=== PATIENT | male | born 1960 | race Caucasian/White ===

== ENCOUNTER 2018-07-29 10:21 | Emergency (ER) | payer OTHER ==
[~2018-07-29] VITALS: Ht 190.5 cm; Wt 128.1 kg
[2018-07-29 10:25] VITALS: Ht 190.5 cm; Wt 128.1 kg
[2018-07-29] MEDS ORDERED: ALBUTEROL 0.083% (NEB) 2.5 MG/3 ML AMP HHN STA (11:14)
[2018-07-29] MEDS ORDERED: DEXAMETHASONE 10 MG/ML 1 ML INJ IM ONE (11:30)
[2018-07-29] MEDS ORDERED: IPRATROPIUM (NEB) 0.5 MG/2.5 ML AMP HHN ONE (11:30)
[2018-07-29] MEDS ORDERED: ALBU8.5H8 INH (12:32)
[2018-07-29] MEDS ORDERED: MED4DP PO (12:32)
[2018-07-29] MEDS ORDERED: BENZ-6 PO (12:32)
[2018-07-29] MEDS ORDERED: D-ME473S2 PO (12:32)
--- NOTE | 2018-07-29 12:40 | ERD ---
ER Documentation Chief Complaint Chief Complaint cough x 13 days HPI 58 yr old male presenting with a cough x13 days. Patient has been on a course of Augmentin and Keflex with no alleviation of his symptoms. He denies any chest pain or shortness of breath. He states is a dry type cough. He has mild sore throat and mild congestion. He smokes to 3 cigarettes a day. Medical history is hypertension, heart failure, diabetes, hypercholesterolemia. Social history occasionally denies drug use. ROS All systems reviewed and are negative except as per history of present illness. Medications Home Meds Active Scripts Albuterol Sulfate* (Proair HFA*) 8.5 Gm Hfa.aer.ad, 2 PUFF INH Q4, #1 INHALER Prov:RUPINDER TELLEZ PA-C 07/29/18 Methylprednisolone* (Medrol* DOSE PACK) 4 Mg/Dose-Pack Tab.ds.pk, 4 MG PO . DIRECTED, #1 PACKET Prov:RUPINDER TELLEZ PA-C 07/29/18 Benzonatate* (Tessalon Perle*) 100 Mg Capsule, 100 MG PO Q8H PRN for COUGH, #30 CAP Prov:RUPINDER TELLEZ PA-C 07/29/18 Dextromethorphan Hb-Promethazine Hcl* (Promethazine DM* Syrup) 473 Ml Syrup, 5 ML PO Q6 PRN for COUGH, #100 ML Prov:RUPINDER TELLEZ PA-C 07/29/18 Allergies Allergies: Coded Allergies: No Known Allergy (Unverified , 07/29/18) PMhx/Soc History of Surgery: Yes (left shoulder SX) Anesthesia Reaction: No Hx Cardiac Disorders: Yes (HTN, Afib) Hx Alcohol Use: Yes (beer QD) Hx Substance Use: No Hx Tobacco Use: Yes Smoking Status: Current every day smoker FmHx Family History: No diabetes, No coronary disease, No other Physical Exam Vitals Vital Signs Date Temp Pulse Resp B/P (MAP) Pulse Ox O2 O2 Flow FiO2 Time Delivery Rate 07/29/18 98 19 97 21 11:35 07/29/18 97.7 98 20 178/90 96 10:25 (119) Physical Exam GENERAL: The patient is well-appearing, well-nourished, in no acute distress HEENT: Atraumatic. Conjunctivae are pink. Pupils equal, round, and reactive to light. There is no scleral icterus. Tympanic membranes clear bilaterally. Oropharynx clear. NECK: C-spine is soft and supple. There is no meningismus. There is no cervical lymphadenopathy. CHEST: Clear to auscultation bilaterally. There are no rales, wheezes or rhonchi. HEART: Regular rate and rhythm. No murmurs, clicks, rubs or gallops. Result Diagram: 07/29/18 1140 07/29/18 1140 Results 24 hrs Laboratory Tests Test 07/29/18 11:40 White Blood Count 8.1 10^3/ul Red Blood Count 4.93 10^6/ul Hemoglobin 15.7 g/dl Hematocrit 45.8 % Mean Corpuscular Volume 92.9 fl Mean Corpuscular Hemoglobin 31.8 pg Mean Corpuscular Hemoglobin Concent 34.3 g/dl Red Cell Distribution Width 12.3 % Platelet Count 191 10^3/UL Mean Platelet Volume 10.9 fl Immature Granulocytes % 0.400 % Neutrophils % 62.7 % Lymphocytes % 26.7 % Monocytes % 8.8 % Eosinophils % 1.2 % Basophils % 0.2 % Nucleated Red Blood Cells % 0.0 /100WBC Immature Granulocytes # 0.030 10^3/ul Neutrophils # 5.1 10^3/ul Lymphocytes # 2.2 10^3/ul Monocytes # 0.7 10^3/ul Eosinophils # 0.1 10^3/ul Basophils # 0.0 10^3/ul Nucleated Red Blood Cells # 0.0 10^3/ul Urine Color YELLOW Urine Clarity CLEAR Urine pH 5.0 Urine Specific [place] 1.024 Urine Ketones NEGATIVE mg/dL Urine Nitrite NEGATIVE mg/dL Urine Bilirubin NEGATIVE mg/dL Urine Urobilinogen 2+ mg/dL Urine Leukocyte Esterase NEGATIVE Jamal/ul Urine Hemoglobin NEGATIVE mg/dL Urine Glucose NEGATIVE mg/dL Urine Total Protein NEGATIVE mg/dl Sodium Level 138 mmol/L Potassium Level 4.0 mmol/L Chloride Level 100 mmol/L Carbon Dioxide Level 31 mmol/L Anion Gap 7 Blood Urea Nitrogen 14 mg/dl Creatinine 0.51 mg/dl Est Glomerular Filtrat Rate mL/min > 60 mL/min Glucose Level 167 mg/dl Calcium Level 8.5 mg/dl Total Bilirubin 0.9 mg/dl Direct Bilirubin 0.00 mg/dl Indirect Bilirubin 0.9 mg/dl Aspartate Amino Transf (AST/SGOT) 33 IU/L Alanine Aminotransferase (ALT/SGPT) 60 IU/L Alkaline Phosphatase 83 IU/L Troponin I < 0.012 ng/ml B-Type Natriuretic Peptide 317 PG/ML Total Protein 6.8 g/dl Albumin 3.7 g/dl Globulin 3.10 g/dl Albumin/Globulin Ratio 1.19 Lipase 127 U/L Current Medications Medications Dose Sig/Mike Start Time Status Last (Trade) Ordered Route PRN Stop Time Admin Dose Reason Admin Albuterol 5 mg ONCE STAT 07/29/18 DC 07/29/18 (Proventil HHN 11:14 11:34 0.083% (Neb)) 07/29/18 11:16 Ipratropium 0.5 mg ONCE ONCE 07/29/18 DC 07/29/18 [place] HHN 11:30 11:34 (Atrovent 07/29/18 11:31 0.02% (Neb)) 10 mg ONCE ONCE 07/29/18 DC 07/29/18 Dexamethasone IM 11:30 12:04 (Decadron) 07/29/18 11:31 Procedures/MDM DIAGNOSTIC IMAGING REPORT Patient: ZANE THOMPSON : 1960 Age: 58 Sex: M MR #: [id number] DOS: 07/29/18 1112 Ordering MD: MERISSA TELLEZ PA-C Location: [facility] Room/Bed: PROCEDURE: XR Chest. CLINICAL INDICATION: Pain TECHNIQUE: AP portable semi upright chest was obtained COMPARISON: None. FINDINGS: The heart is mildly enlarged. No evidence of pulmonary vascular congestion acute lung consolidation pleural effusions and pneumothorax. IMPRESSION: Mild cardiomegaly without congestive heart failure or pneumonia. EKG: Rate/Rhythm: 68 bpm A fib with regular rate. reviewed by Dr. Knutson QRS, ST, T-waves: No changes consistent w/ acute ischemia Impression: No evidence of ischemia or arrhythmia. MDM: 58-year-old male presenting with cough. I have low suspicion for cardiac emergency. I have low suspicion for just of heart failure exacerbation or pneumonia. Patient will be discharged with supportive medications. I do not feel new antibiotics are required. Patient is told symptoms change or worsen to return immediately to the ER. Patient does have a slightly elevated BNP however not concerning enough for admission. There is no lower leg pitting edema. Patient is discharged with strict ER precautions. All questions answered at discharge Departure Diagnosis: Primary Impression: Cough Condition: Stable Patient Instructions: Cough, Chronic, Uncertain Cause, (Adult) Referrals: COMMUNITY CLINICS YOU HAVE RECEIVED A MEDICAL SCREENING EXAM AND THE RESULTS INDICATE THAT YOU DO NOT HAVE A CONDITION THAT REQUIRES URGENT TREATMENT IN THE EMERGENCY DEPARTMENT. FURTHER EVALUATION AND TREATMENT OF YOUR CONDITION CAN WAIT UNTIL YOU ARE SEEN IN YOUR DOCTORS OFFICE WITHIN THE NEXT 1-2 DAYS. IT IS YOUR RESPONSIBILITY TO MAKE AN APPOINTMENT FOR FOLOW-UP CARE. IF YOU HAVE A PRIMARY DOCTOR --you should call your primary doctor and schedule an appointment IF YOU DO NOT HAVE A PRIMARY DOCTOR YOU CAN CALL OUR PHYSICIAN REFERRAL HOTLINE AT IF YOU CAN NOT AFFORD TO SEE A PHYSICIAN YOU CAN CHOSE FROM THE FOLLOWING [facility] CLINICS [facility] [address] [facility] [address] [facility] [facility] [address] [facility] [address] [facility] [address] [facility]. [facility]. [address] Additional Instructions: FOLLOW UP WITH YOUR PRIMARY CARE PHYSICIAN TOMORROW.Return to this facility if you are not improving as expected. RUPINDER TELLEZ PA-C Jul 29, 2018 12:40
[2018-07-29 12:52] VITALS: BP 131/81; PULSE 62; RESP 18
== END 2018-07-29 12:53 | disposition home or self-care (01) ==
LOC: FTE 10:21
DX: R05 Cough (principal); R07.9 Chest pain, unspecified; I10 Essential (primary) hypertension; F17.210 Nicotine dependence, cigarettes, uncomplicated
CPT/HCPCS: 36415; 71045; 80053; 81003; 83690; 83880; 84484; 85025; 93005; 94664; 96372; 99285; J1100

== ENCOUNTER 2018-08-02 16:42 | Emergency (ER) | payer OTHER ==
[~2018-08-02] VITALS: Ht 190.5 cm; Wt 129.0 kg
[~2018-08-02 16:42] MED LIST: ALBU8.5H8 INH; BENZ-6 PO; D-ME473S2 PO; MED4DP PO
[2018-08-02 17:08] VITALS: Ht 190.5 cm; Wt 129.0 kg
[2018-08-02] MEDS ORDERED: PROM5SYR2 PO (19:26)
--- NOTE | 2018-08-02 19:26 | ERD ---
ER Documentation Chief Complaint Chief Complaint cough & congestion no relief with tx fr 5 days ago HPI 58-year-old male with history of stable heart failure presents with complaint of cough and congestion for the past 3 weeks. He states that he has had 2 chest x- rays as well as 1 course of Augmentin and one course of Keflex which she is finished during this time. In addition he states he was just here several days ago and was prescribed a steroid which he is almost done with. He states that he does not want a breathing treatment or repeat x-ray rather feels like he needs more time off from work and would like more promethazine. Patient denies fever, night sweats, weight loss, fatigue, hemoptysis, dyspnea, pleuritic chest pain, or orthopnea, leg swelling, redness in the legs, malignancy, recent surgeries. ROS All systems reviewed and are negative except as per history of present illness. Medications Home Meds Active Scripts Albuterol Sulfate* (Proair HFA*) 8.5 Gm Hfa.aer.ad, 2 PUFF INH Q4, #1 INHALER Prov:RUPINDER TELLEZ PA-C 07/29/18 Methylprednisolone* (Medrol* DOSE PACK) 4 Mg/Dose-Pack Tab.ds.pk, 4 MG PO . DIRECTED, #1 PACKET Prov:RUPINDER TELLEZ PA-C 07/29/18 Benzonatate* (Tessalon Perle*) 100 Mg Capsule, 100 MG PO Q8H PRN for COUGH, #30 CAP Prov:RUPINDER TELLEZ PA-C 07/29/18 Dextromethorphan Hb-Promethazine Hcl* (Promethazine DM* Syrup) 473 Ml Syrup, 5 ML PO Q6 PRN for COUGH, #100 ML Prov:RUPINDER TELLEZ PA-C 07/29/18 Allergies Allergies: Coded Allergies: No Known Allergy (Unverified , 07/29/18) PMhx/Soc History of Surgery: Yes (left shoulder SX) Anesthesia Reaction: No Hx Cardiac Disorders: Yes (HTN, Afib) Hx Alcohol Use: Yes (beer QD) Hx Substance Use: No Hx Tobacco Use: Yes FmHx Family History: No diabetes, No coronary disease, No other Physical Exam Vitals Vital Signs Date Temp Pulse Resp B/P (MAP) Pulse Ox O2 O2 Flow FiO2 Time Delivery Rate 08/02/18 97.2 68 18 129/73 97 17:08 (91) Physical Exam Const: No acute distress Head: Atraumatic Eyes: Normal Conjunctiva ENT: Normal External Ears, Nose and Mouth. Neck: Full range of motion. No meningismus. Resp: Mild wheezes heard in lung abrams bilaterally. There are no rales or rhonchi. Equal breath sounds. Cardio: Regular rate and rhythm, no murmurs Abd: Soft, non tender, non distended. Normal bowel sounds Skin: No petechiae or rashes Back: No midline or flank tenderness Ext: No cyanosis, or edema Neur: Awake and alert Psych: Normal Mood and Affect Procedures/MDM MDM: Patient had just received a chest x-ray several days ago which was within normal limits showing no sign of acute heart failure or pneumonia. Patient stated that he did not want another chest x-ray. Patient also stated he did not want another breathing treatment rather he just wanted some more time off from work and some more cough medicine. Patient's well score does not indicate a d- dimer. I have low suspicion for tubercolosis, pneumonia, pleural effusion, acute heart failure, foreign body aspiration, pulmonary embolism, pneumothorax, or other emergent etiology. Patients O2 sat is normal and is not having difficulty breathing, therefore patient is fit for discharge. Patient discharged with rx for promethazine with codeine and advised to follow up with PMD. At this time, patient is stable for discharge and outpatient management. I have instructed the patient to follow-up with his/her primary care physician in 1-2 days. I have discussed with the patient the possibility of needing to see a specialist for further workup and imaging studies if symptoms persist. I have instructed the patient to promptly return to the ER for any new or worsening symptoms including but not limited to increased pain, fever, nausea, vomiting, weakness or LOC. The patient and/or family expressed understanding of and agreement with this plan. All questions were answered. Home care instructions were provided. DISCLAIMER: Inadvertent spelling and grammatical errors are likely due to EHR/dictation software use and do not reflect on the overall quality of patient care. Also, please note that the electronic time recorded on this note does not necessarily reflect the actual time of the patient encounter. Departure Diagnosis: Primary Impression: Cough Condition: Stable MARGTOMASES,MICKEY Aug 02, 2018 19:26
[2018-08-02 19:30] VITALS: BP 131/73; PULSE 86; RESP 18
== END 2018-08-02 19:40 | disposition home or self-care (01) ==
LOC: FTE 16:42
DX: R05 Cough (principal); I11.0 Hypertensive heart disease with heart failure; I50.9 Heart failure, unspecified; Z87.891 Personal history of nicotine dependence
CPT/HCPCS: 99283

== ENCOUNTER 2018-08-05 10:20 | Emergency (ER) | payer OTHER ==
[~2018-08-05] VITALS: Ht 190.5 cm; Wt 128.0 kg
[~2018-08-05 10:20] MED LIST changes: +PROM5SYR2 PO
[2018-08-05 10:23] VITALS: BP 140/88; PULSE 72; RESP 18; Ht 190.5 cm; Wt 128.0 kg
[2018-08-05] MEDS ORDERED: ATRO INH (11:11)
[2018-08-05] MEDS ORDERED: FLUT9.9S NASAL (11:11)
[2018-08-05] MEDS ORDERED: PSEU60TA2 PO (11:11)
[2018-08-05] MEDS ORDERED: BENZ200C68 PO (11:14)
--- NOTE | 2018-08-06 09:32 | ERD ---
ER Documentation Chief Complaint Chief Complaint Came for recheck bronchitis; still coughing, finished antibiotics. No SOB HPI Is a 38-year-old male patient who presents emergency room with complaint of coughing x3 weeks. Patient was treated 2 weeks ago with antibiotics for bronchitis. Patient was provided with inhaler 1 week ago for continued cough. Prior chest x-ray negative for pneumonia. No respiratory distress, no increased work of breathing, no observed cough. Patient denies chest pain, no SOP, no fevers, no hemoptysis. Cough is dry nonproductive. ROS All systems reviewed and are negative except as per history of present illness. Medications Home Meds Active Scripts Benzonatate* (Benzonatate*) 200 Mg Capsule, 200 MG PO TID PRN for COUGH for 5 Days, #20 CAP Prov:DACIA ACEVEDO NP 08/05/18 Ipratropium [place]* (Atrovent HFA*) 12.9 Gm Aer.w.adap, 2 PUFF INH BID PRN for COUGH for 10 Days, #1 EA Prov:DACIA ACEVEDO NP 08/05/18 Pseudoephedrine Hcl* (Pseudoephedrine Hcl*) 60 Mg Tablet, 60 MG PO BID PRN for CONGESTION for 5 Days, #10 TAB Prov:DACIA ACEVEDO NP 08/05/18 Fluticasone Propionate (Flonase Allergy Relief) 9.9 Ml [place].susp, 2 SPRAY NASAL DAILY for nasal congestion for 14 Days, #1 BOTTLE TO EACH NOSTRIL Prov:DACIA ACEVEDO NP 08/05/18 Promethazine HCl/Codeine (Prometh-Codein 6.25-10 mg/5 ml) 5 Ml Syrup, 5 ML PO Q4, #4 OZ Prov:MICKEY BELL 08/02/18 Albuterol Sulfate* (Proair HFA*) 8.5 Gm Hfa.aer.ad, 2 PUFF INH Q4, #1 INHALER Prov:RUPINDER TELLEZ PA-C 07/29/18 Methylprednisolone* (Medrol* DOSE PACK) 4 Mg/Dose-Pack Tab.ds.pk, 4 MG PO . DIRECTED, #1 PACKET Prov:RUPINDER TELLEZ PA-C 07/29/18 Benzonatate* (Tessalon Perle*) 100 Mg Capsule, 100 MG PO Q8H PRN for COUGH, #30 CAP Prov:RUPINDER TELLEZ PA-C 07/29/18 Dextromethorphan Hb-Promethazine Hcl* (Promethazine DM* Syrup) 473 Ml Syrup, 5 ML PO Q6 PRN for COUGH, #100 ML Prov:RUPINDER TELLEZ PA-C 07/29/18 Allergies Allergies: Coded Allergies: No Known Allergy (Unverified , 07/29/18) PMhx/Soc History of Surgery: Yes (left shoulder SX) Anesthesia Reaction: No Hx Neurological Disorder: No Hx Respiratory Disorders: No Hx Cardiac Disorders: Yes (HTN, Afib) Hx Psychiatric Problems: No Hx Miscellaneous Medical Probl: No Hx Alcohol Use: Yes (beer QD) Hx Substance Use: No Hx Tobacco Use: Yes Smoking Status: Current every day smoker FmHx Family History: No diabetes, No coronary disease, No other Physical Exam Vitals Vital Signs Date Temp Pulse Resp B/P (MAP) Pulse Ox O2 O2 Flow FiO2 Time Delivery Rate 08/05/18 97.1 72 18 140/88 97 10:23 (105) Physical Exam Const: No acute distress Head: Atraumatic Eyes: Normal Conjunctiva ENT: Normal External Ears, Nose and Mouth. Pharynx pink, moist, no lesions, no exudate. Neck: Full range of motion. No meningismus. No lymphadenopathy Resp: Diminished lung sounds in all lung abrams, no wheezing, no rales, no rhonchi Cardio: Regular rate and rhythm, no murmurs Abd: Soft, non tender, non distended. Normal bowel sounds Skin: No petechiae or rashes Back: No midline or flank tenderness Ext: No cyanosis, or edema Neur: Awake and alert Psych: Normal Mood and Affect Procedures/MDM PROCEDURES/MDM DIAGNOSTIC IMAGING: Not indicated at this time PROCEDURES: none LAB INTERPRETATION: No lab work performed MDM: This is a 58-year-old male patient who presents emergency room for 3 weeks of cough after diagnosis and treatment for bronchitis. Patient states he otherwise feels well but has a lingering and distracting cough. Patient is primarily requesting cough medicine and a note to be off of work. Patient declines any work-up at this time. Patient is otherwise well-appearing, no increased work of breathing, no wheezing, vital signs stable. Patient has been provided with work note as well as prescription for Flonase as cough may have component of postnasal drip, Atrovent inhaler was also prescribed. Patient was instructed to follow-up with primary care physician in the next 2 to 3 weeks if cough does not resolve as chronic cough will require further work-up. Patient encouraged to quit smoking. Discussed with patient that cough potentially could be caused from GERD symptoms, patient denies any acid reflux, burping, indigestion, throat pain. Patient denies fever, denies chest pain, no shortness of breath, no increased work of breathing, low suspicion for pneumonia, sepsis, bacterial bronchitis, i mpending airway compromise or other serious etiology. DISPOSITION and PLAN: The patient has been discharge home to follow-up with community physician. Departure Diagnosis: Primary Impression: Bronchitis Additional Impression: Cough Condition: Stable Patient Instructions: Cough, Chronic, Uncertain Cause, (Adult) Referrals: COMMUNITY CLINICS YOU HAVE RECEIVED A MEDICAL SCREENING EXAM AND THE RESULTS INDICATE THAT YOU DO NOT HAVE A CONDITION THAT REQUIRES URGENT TREATMENT IN THE EMERGENCY DEPARTMENT. FURTHER EVALUATION AND TREATMENT OF YOUR CONDITION CAN WAIT UNTIL YOU ARE SEEN IN YOUR DOCTORS OFFICE WITHIN THE NEXT 1-2 DAYS. IT IS YOUR RESPONSIBILITY TO MAKE AN APPOINTMENT FOR FOLOW-UP CARE. IF YOU HAVE A PRIMARY DOCTOR --you should call your primary doctor and schedule an appointment IF YOU DO NOT HAVE A PRIMARY DOCTOR YOU CAN CALL OUR PHYSICIAN REFERRAL HOTLINE AT IF YOU CAN NOT AFFORD TO SEE A PHYSICIAN YOU CAN CHOSE FROM THE FOLLOWING [facility] CLINICS [facility] [address] [facility] [address] [facility] [facility] [address] [facility] [facility] [address] [facility] [address] [facility]. [facility]. [address] Additional Instructions: Thank you very much for allowing us to participate in your care. Your health and safety is our top priority at [facility]. Call your primary care doctor TOMORROW for an appointment during the next 2-4 days and bring all the information and medications prescribed. Have prescriptions filled and follow precisely the directions on the label. If the symptoms get worse and your provider is unavailable, return to the Emergency Department immediately. USE ATROVENT 1 PUFF TWICE A DAY FOR COUGH, USE YOUR ALBUTEROL 1 TO 2 PUFFS NEEDED FOR WHEEZING. START USE OF FLONASE 1 SPRAY TO EACH NOSTRIL TWICE A DAY FOR 14 DAYS, USE SUDAFED TWICE A DAY NEEDED FOR NASAL CONGESTION. FOLLOW-UP WITH YOUR PRIMARY CARE DOCTOR FOR EVALUATION OF COUGH IF COUGH CONTINUES AT 6 WEEKS FROM INITIAL ONSET OF COUGH. RETURN TO THE EMERGENCY ROOM WITH ANY CHANGE IN SYMPTOMS INCLUDING A FEVER, PRODUCTIVE COUGH, CHEST PAIN, SHORTNESS OF BREATH. INCREASE HYDRATION, REST, USE IBUPROFEN OR TYLENOL NEEDED FOR FEVER OR DISCOMFORT. DACIA ACEVEDO NP Aug 06, 2018 09:32
== END 2018-08-05 11:51 | disposition home or self-care (01) ==
LOC: FTE 10:20
DX: J40 Bronchitis, not specified as acute or chronic (principal); I10 Essential (primary) hypertension; F17.210 Nicotine dependence, cigarettes, uncomplicated
CPT/HCPCS: 99283